=== PATIENT | female | born 1960 | race Caucasian/White ===

== ENCOUNTER → 2019-03-23 | Outpatient (CLI) | payer MEDICARE ==
[~2019-03-23] MED LIST: ALPR0.5T7 PO
== END | disposition home or self-care (01) ==
LOC: CFH 12:44
PROVIDERS: ATTEND Obstetrics & Gynecology
DX: Z12.31 Encounter for screening mammogram for malignant neoplasm of breast (principal); D25.1 Intramural leiomyoma of uterus
CPT/HCPCS: 76830; 77067

== ENCOUNTER → 2020-03-14 | Outpatient (CLI) | payer MEDICARE | END | disposition home or self-care (01) | LOC: CFH 08:20 | PROVIDERS: ATTEND Obstetrics & Gynecology | DX: R92.2 Inconclusive mammogram (principal); N64.4 Mastodynia; N95.0 Postmenopausal bleeding; D25.9 Leiomyoma of uterus, unspecified | CPT/HCPCS: 76830; 77066; G0279 ==

== ENCOUNTER 2020-08-14 12:17 | Emergency (ER) | payer MEDICARE ==
[~2020-08-14] VITALS: Ht 152.4 cm; Wt 80.0 kg
--- NOTE | 2020-08-14 12:38 | NUR ---
PT C/O OF SOB, COUGH, FEVER, LOSS OF SENSE OF TASTE AND SMELL. PT REPORTS HER DAUGHTER HAD COOVID July. PT ATTACHED TO CARDIAC, SP02, AND BP MONITORS. VSS. PT ON 2 L NC AT 97%. LUNG SOUNDS DEMINISHED THROUGHOUT. NOTED COUGHING. DENIES CP AND HEADACHE. PT IN NAD. A&OX4
[2020-08-14] MEDS ORDERED: PROMETHAZINE/COD. 10MG/6.25MG/5 ML ORAL SOL PO PRN (13:30)
[2020-08-14] MEDS ORDERED: SODIUM CHLORIDE FLUSH 10ML SYR IVF ONE (13:30)
--- NOTE | 2020-08-14 13:34 | NUR ---
BLLOOD WITHDRAWN FROM PT. TOLERATED WELL. VSS
[2020-08-14 13:52] LABS: BASOPHILS % (AUTO) 0 % (0-1); EOSINOPHILS % (AUTO) 0 % (1-7); LYMPHOCYTES % (AUTO) 21 % (22-44); MEAN CORPUSCULAR HEMOGLOBIN 27.7 pg (27.0-34.8); MEAN PLATELET VOLUME 8.2 fL (7.4-10.4); MONOCYTES % (AUTO) 6 % (2-9); NEUTROPHILS % (AUTO) 73 % (42-75); PLATELET COUNT 305 x10^3/uL (130-400); RED CELL DISTRIBUTION WIDTH 14.3 % (9.6-15.2)
[2020-08-14 13:55] LABS: MD NO
[2020-08-14 14:03] LABS: ALBUMIN 3.4 g/dL (3.4-5.0); ANION GAP 6 mmol/L (5-15); CALCIUM 8.6 mg/dL (8.5-10.1); CHLORIDE 107 mmol/L (98-107); CREATININE 0.46 mg/dL (0.55-1.02)
[2020-08-14 14:06] LABS: TROPONIN I < 0.015 ng/mL (0.000-0.045)
--- NOTE | 2020-08-14 14:07 | NUR ---
Note ninapino in EDM - 08/14/20 at 1410 by [email or web address] PT C/O OF PAIN IN RT SHOULDER AND TAILBONE FOR 4 MONTH OR LONGER. PT REPORTS FALLING OVER A GAS PUMP AND HAS HAD PAIN INTERMITTENTLY SINCE. REPORTS BURNING PAIN THAT CAUSES NAUSEA. MOVEMENT MAKES PAIN WORSE.
[2020-08-14] MEDS ORDERED: CEFTRIAXONE 1,000 MG in DEXTROSE 5% 50 ML IVPB ONE (15:00)
[2020-08-14] MEDS ORDERED: AZITHROMYCIN 500 MG in SODIUM CHLORIDE 0.9% 250 ML IV ONE (15:00)
--- NOTE | 2020-08-14 15:10 | NUR ---
PT AMBULATED TO BATHROOM TO URINATE. AMBULATED BACK TO ROOM. TOLERATED WELL. PT IN NAD. ATTACHED BACK TO ALL MONITORS. VSS. 98% ON RA. WAITING TO GIVE ABX UNTIL LAB GETS 2ND BLOOD CULTURE.
--- NOTE | 2020-08-14 16:18 | NUR ---
PT RESTING IN BED. IN NAD. VSS.
--- NOTE | 2020-08-14 16:38 | NUR ---
DAUGHTER CALLED REGARDING MOTHER.
--- NOTE | 2020-08-14 17:03 | NUR ---
PT WAS REQUESTING FOOD. PT GIVEN MILK, CEREAL, PUDDING AND SNACKS.
--- NOTE | 2020-08-14 18:11 | NUR ---
CLARIFIED WITH MD ABOUT DISCHARGING PT TO HOME. PT ALSO STATED THAT SHE WANTED TO BE TREATED AT HOME. EXPLAINED REITERRATED TO PT THAT IF SYMPTOMS BEGIN TO GET WORSE SHE SHOULD COME BACK TO ED.
[2020-08-14 18:19] VITALS: BP 105/83
[2020-08-14] MEDS ORDERED: NEOSPORIN OINT. PKT 1 PACKET ONE (23:38)
[2020-08-22] MEDS ORDERED: MELA5TAB14 PO (22:28)
[2020-08-22] MEDS ORDERED: THIA100T67 PO (22:28)
[2020-08-22] MEDS ORDERED: CHOL500045 PO (22:28)
[2020-08-22] MEDS ORDERED: Guaifenesin/Cod200mg-20MG/10ML PO (22:28)
[2020-08-22] MEDS ORDERED: ACET325T26 PO (22:28)
[2020-08-22] MEDS ORDERED: DOXY100T PO (22:28)
[2020-08-22] MEDS ORDERED: DEXA6TAB6 PO (22:28)
[2020-08-22] MEDS ORDERED: OXYM15SP8 NAS (22:28)
[2020-08-22] MEDS ORDERED: ASCO500T9 PO (22:28)
[2020-08-22] MEDS ORDERED: ZINC220C8 PO (22:28)
== END 2020-08-14 18:26 | disposition home or self-care (01) ==
LOC: ED 13:40 → UNDOADMIN 15:48 → EDIP 15:48 → ED 18:20
DX: U07.1 COVID-19 (principal); J15.9 Unspecified bacterial pneumonia; R06.02 Shortness of breath; R00.0 Tachycardia, unspecified; Z88.8 Allergy status to other drugs, medicaments and biological substances; Z88.0 Allergy status to penicillin
CPT/HCPCS: 36415; 71045; 80048; 82040; 83605; 84484; 85025; 87040; 93005; 96365; 96367; 99285; J0456; J0696; J7050; U0003